=== PATIENT | female | born 1970 | race Caucasian/White ===

== ENCOUNTER 2019-12-06 14:52 | Outpatient (REF) | payer OTHER, SELFPAY ==
--- NOTE | 2019-12-06 | MM_ITS ---
EXAMINATION: MM SCREENING DIGITAL BREAST TOMOSYNTHESIS, BILATERAL CLINICAL INFORMATION: Screening. Asymptomatic. The lifetime risk of breast cancer based on the Tyrer-Cuzick Model is 6%. COMPARISON: Mammography: 12/14/2018, 11/30/2018, 07/01/2016, 05/08/2015, 02/28/2014 TECHNIQUE: Digital breast tomosynthesis is performed in both the craniocaudal and mediolateral oblique views along with computer-aided detection (CAD). Synthesized 2D images are generated from the tomosynthesis. FINDINGS: There are scattered areas of fibroglandular density (ACR BI-RADS breast composition Category b). Fibrocystic changes have regressed since prior studies. There is no significant mass, architectural abnormality, or abnormal calcifications. The axilla and skin contours are unremarkable. There are no significant changes. IMPRESSION: No significant significant changes from prior studies. ASSESSMENT: BI-RADS 2: Benign RECOMMENDATION: Routine annual mammography screening. This patient's information was entered into a reminder system with a target due date for their next mammogram.
== END 2019-12-06 14:53 | disposition home or self-care (01) ==
LOC: HO.MAMMO 14:52
PROVIDERS: PCP Internal Medicine; Visit Provider Internal Medicine
DX: Z12.31 Encounter for screening mammogram for malignant neoplasm of breast (principal)
CPT/HCPCS: 77063; 77067; 78014

== ENCOUNTER → 2019-12-18 10:44 | Outpatient (BNVA) | payer OTHER, SELFPAY | PROVIDERS: PCP Internal Medicine; Visit Provider Physician Assistant | DX: M65.331 Trigger finger, right middle finger (principal) | CPT/HCPCS: 20550; J1020 ==

== ENCOUNTER 2020-11-19 07:59 | Outpatient (REF) | payer OTHER, SELFPAY ==
[2020-11-19 10:13] LABS: MANUAL DIFF FLAG NO
[2020-11-19 10:17] LABS: Basophils Percent Auto 0.6 % (0-2); Eosinophils Absolute Auto 0.1 X10*3/uL (0.0-0.4); Eosinophils Percent Auto 2.2 % (0-4); Hematocrit 37.5 % (37-47); Hemoglobin 12.4 g/dl (12.0-16.0); Imm Gran Abs Auto 0.02 X10*3/uL (0.00-0.03); Imm Gran Pct Auto 0.4 % (0.0-0.4); Lymphocytes Absolute Auto 2.1 X10*3/uL (1.2-4.9); Lymphocytes Percent Auto 41.2 % (20-40); Mean Corpuscular HGB Conc 33.1 g/dl (31.0-35.0); Mean Corpuscular Hemoglobin 28.6 pg (27.0-33.0); Mean Corpuscular Volume 86.6 fL (80-98); Mean Platelet Volume 9.5 fL (9.4-12.3); Monocytes Absolute Auto 0.4 X10*3/uL (0.1-1.2); Monocytes Percent Auto 7.1 % (2-11); Neutrophils Absolute Auto 2.5 X10*3/uL (2.0-8.3); Neutrophils Percent Auto 48.5 % (45-73); Platelet Count 387 X10*3/uL (160-400); Red Blood Count 4.33 X10*6/uL (4.20-5.50); Red Cell Distribution Width 13.3 % (11.0-16.0); White Blood Count 5.1 X10*3/uL (4.8-10.8)
[2020-11-19 10:43] LABS: Alanine Aminotransferase 16 U/L (0-31); Albumin Level 4.1 g/dL (3.5-5.0); Alkaline Phosphatase 45 U/L (39-117); Anion Gap 10 (12-20); Aspartate Amino Transferase 16 U/L (5-31); Bilirubin Total 0.5 mg/dL (0.0-1.0); Blood Urea Nitrogen 12 mg/dL (9-16); Calcium 9.6 mg/dL (8.4-10.2); Carbon Dioxide 25 mmol/L (22-29); Chloride 108 mmol/L (96-108); Cholesterol 186 mg/dL; Estimated Glomerular Filt Rate > 60; Glucose Fasting 94 mg/dL (60-99); HDL Cholesterol 52 mg/dL; LDL Cholesterol Calculated 120 mg/dl; Potassium 4.4 mmol/L (3.3-5.1); Sodium 139 mmol/L (135-145); Total Protein 6.5 g/dL (6.5-8.0); Triglycerides 74 mg/dL
[2020-11-24 15:36] LABS: Vitamin D 25-OH, D2 7 ng/mL; Vitamin D 25-OH, D3 37 ng/mL; Vitamin D 25-OH, Total 44 ng/mL (30-100)
== END 2020-11-19 08:00 | disposition home or self-care (01) ==
LOC: HO.10HDL 07:59
PROVIDERS: Visit Provider Internal Medicine
DX: E55.9 Vitamin D deficiency, unspecified (principal); E78.5 Hyperlipidemia, unspecified; D64.9 Anemia, unspecified; M65.30 Trigger finger, unspecified finger
CPT/HCPCS: 36415; 80053; 80061; 82306; 85025

== ENCOUNTER → 2021-05-19 14:25 | Outpatient (BNVA) | payer OTHER, SELFPAY | PROVIDERS: PCP Internal Medicine; Visit Provider Physician Assistant | DX: Z12.11 Encounter for screening for malignant neoplasm of colon (principal); Z83.71 Family history of colonic polyps ==

== ENCOUNTER 2021-07-28 07:21 | Day surgery (SDC) | payer OTHER, SELFPAY ==
[2021-07-22 15:47] VITALS: BMI 23.1
--- NOTE | 2021-07-27 09:59 | P.CONAN_ITS ---
Documented by User: Dilma Reynoso NP 07/27/21 10:00 HPI - Anesthesia Eval Consult details Narrative: 51yo F for Colonoscopy PMFSH Active Problems Active Problems: All Active Problems (Updated 05/19/21 @ 15:01 by Madalyn Valencia PA-C) Family history of colonic polyps (Acute) Encounter for screening colonoscopy (Acute) Screening for cervical cancer (Acute) Trigger finger, right (Acute) Past Medical History Medical History Screening for cervical cancer Family History Family History Father CVD (cardiovascular disease) Substance use disorder Mother Cancer Surgical History Surgical History History of left breast biopsy History of mastopexy Social History Social History Household Members Other:: single- 2 kids Housing: House Alcohol intake: current Alcohol intake frequency: holidays/special occasions only Patient Tobacco Use Status: Former Tobacco user Tobacco use type: Cigarette e-Cigarette/Vaping Use: Never Used Second Hand Smoke Exposure: No Use of substances other than those prescribed or required for medical reasons: No Are you DNR?: No Advance Directives: No Advance Directives Information Provided: Yes Recently lost weight without trying: No service: No 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 occupational status: 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 Current occupational exposures/hazards: No Meds Allergies Allergy/AdvReac Type Severity Reaction Status Date / Time No Known Allergies Allergy Verified 05/19/21 14:27 Home Medications Medication Instructions Recorded Confirmed Last Taken Type magnesium 250 mg tablet 250 mg PO DAILY 11/25/20 07/28/21 Unknown History Exam Exam Date and Time: July 27, 2021 0959 Height,Weight and Vital Signs: Height 5 ft 4 in Weight 61.235 kg Assessment and Plan Assessment Anesthesia Assessment: Chart Reviewed Documented by User: Sara Meng MD 07/28/21 08:27 [facility] Past Medical History Medical History Screening for cervical cancer Family History Family History Father CVD (cardiovascular disease) Substance use disorder Mother Cancer Family history of problems with anesthesia: No Surgical History Surgical History History of left breast biopsy History of mastopexy History of Problems with Anesthesia: No Social History Social History Household Members Other:: single- 2 kids Housing: House Alcohol intake: current Alcohol intake frequency: holidays/special occasions only Patient Tobacco Use Status: Former Tobacco user Tobacco use type: Cigarette e-Cigarette/Vaping Use: Never Used Second Hand Smoke Exposure: No Use of substances other than those prescribed or required for medical reasons: No Are you DNR?: No Advance Directives: No Advance Directives Information Provided: Yes Recently lost weight without trying: No service: No 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 occupational status: 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 Current occupational exposures/hazards: No Meds Allergies Allergy/AdvReac Type Severity Reaction Status Date / Time No Known Allergies Allergy Verified 05/19/21 14:27 Home Medications Medication Instructions Recorded Confirmed Last Taken Type magnesium 250 mg tablet 250 mg PO DAILY 11/25/20 07/28/21 Unknown History Exam Height,Weight and Vital Signs: Height 5 ft 4 in Weight 61.235 kg Vital Signs Temp Pulse Resp BP Pulse Ox 07/28/21 07:48 98.2 F 78 18 146/81 H 100 Airway Mallampati Class: I TM Dist: >3cm Neck ROM: Full Loose/Missing/Broken Teeth: No Heart: RRR Lungs: CTAB Assessment and Plan Assessment Anesthesia Assessment: Anesthesia Plan Discussed Final Anesthetic Review Family History of Problems with Anesthesia: No History of Problems with Anesthesia: No NPO: Yes ASA Class: I Final Preanesthetic Review: No Changes in Pt Med Stat, Meds/Allgs Chart Reviewed, Consent Obtained/Reviewed and Anes Risks/Benef Reviewed Patient Risk: Low Procedure Risk: Low Assessment/Block/Sedation in SS: Assess/Block/Sedation-SS Anesthetic Plan Anesthetic Plan: MAC: Disposition: Standard PACU
[2021-07-28 07:48] VITALS: BP 146/81; PULSE 78; RESP 18; TEMP 36.8; O2SAT 100
[2021-07-28] MEDS: Lactated Ringers 1,000 ML 100 ML IVCONT (08:07)
--- NOTE | 2021-07-28 08:17 | MHC.SHP ---
Pre-Procedural Eval Section A Date of Service: 07/28/21 Section B Chief Complaint: screening Details of Present Illness: Fh of colon polyps Relevant Family History (Specify if Yes): Yes Relevant Social History: None Present Medications: see Short Stay Collaborative assessment Medical History: No relevant PMH History of Previous Operations: No relevant previous surgery Allergies: Allergies Allergy/AdvReac Type Severity Reaction Status Date / Time No Known Allergies Allergy Verified 05/19/21 14:27 Review of Systems Sugical H&P ROS: Negative: Constitution, Cardiovascular, Respiratory, Neurological, Psychiatric, Hem-Onc, Allergic/Immunologic, Gastrointestinal, Genitourinary, Musculoskeletal, Integumentary, Endocrine and Eyes/Ears/Nose/Throat Exam Surgical H&P Exam: Normal: HEENT, Normal: Heart, Normal: Lungs, Normal: Extremities, Normal: Abdomen, Normal: Skin and Normal: Neurological Plan Diagnosis/Plan: Unchanged I have reviewed the history and physical and performed a pertinent physical examination on my patient. No changes have occurred unless specified.
--- NOTE | 2021-07-28 08:52 | P.BOP_ITS ---
Brief Operative Note Date of Service: 07/28/21 Pre-op diagnosis: Fh of colon polyps Post-op diagnosis: same Procedure: see op note Surgeon: Smita Dickerson MD Anesthesia: MAC Was an Elect Equip Maint Eng used for this Procedure?: No Estimated blood loss (mL): 0 Condition: stable Disposition: PACU
--- NOTE | 2021-07-28 08:53 | P.OP_ITS ---
Operative Note Operative Note Date of Service: 07/28/21 Narrative: Operative Information Procedure Description: Colonoscopy Indication: Fh of colon polyps--screening colonoscopy Anesthesia: MAC COLONOSCOPY Instrument: Olympus variable stiffness pediatric scope 190L Colonoscopy Monitoring: Vital signs and clinical assessment, continuous EKG monitoring, Pulse oximetry, Carbon Dioxide monitoring and blood pressure monitoring were done throughout the procedure. Colon withdrawal time was 8 minutes. Procedure: The patient was placed in the left lateral decubitis position and pre-procedure medications were administered. After a digital rectal examination of the ano-rectum, the video colonoscope was inserted into the rectum and advanced through the colon to the cecum/TI. The colonoscope was slowly withdrawn in a retrograde panoramic fashion and the colon mucosa was carefully examined including a retroflexed view of the rectum. Findings and interventions are described below. Procedure Difficulty: easy Findings: melanosis coli noted Terminal Ileum-normal Cecum:normal Ascending Colon: normal Transverse Colon -normal Descending Colon:normal Sigmoid Colon: moderate severe diverticulosis w/ medium sized tics Rectum: Retroflexion with medium sized internal hemorrhoids, grade I Anorectum - normal Colon preparation: [place] Bowel Preparation Scale Right colon; 2 Transverse colon: 3 Left colon; 3 (0 = Unprepared colon segment with mucosa not seen due to solid stool that cannot be cleared. 1 = Portion of mucosa of the colon segment seen, but other areas of the colon segment not well seen due to staining, residual stool and/or opaque liquid. 2 = Minor amount of residual staining, small fragments of stool and/or opaque liquid, but mucosa of colon segment seen well. 3 = Entire mucosa of colon segment seen well with no residual staining, small fragments of stool or opaque liquid) Impression and Post Procedure Diagnosis: melanosis coli internal hemorrhoids diverticular disease Plan: High fiber diet leaflet Avoid straining at stool, epsom salts and sitz bath, anusol supps or cream Repeat Colonoscopy in 5 years due to Fh of polyps in mutliple family members or earlier if clinically indicated confirm if taking anthraquinone laxatives like senna or herbal teas Above findings were reviewed with the patient and relevant handouts were provided if indicated.
[2021-07-28 08:58] VITALS: BP 103/55; PULSE 81; RESP 16; TEMP 36.6; O2SAT 98
[2021-07-28 09:13] VITALS: BP 124/73; PULSE 63; RESP 16; TEMP 36.6; O2SAT 99
[2021-07-28] MEDS: Sodium Phosphate,Mono-Dibasic 133 ML ENEMA PR (13:20)
--- NOTE | 2021-07-28 13:20 | PC.NURSE ---
late entry. fleets enema given 0750
== END 2021-07-28 09:30 ==
LOC: HO.SSS 07:22
PROVIDERS: PCP Internal Medicine; Visit Provider Internal Medicine Gastroenterology
PROC: 0DJD8ZZ Inspection of Lower Intestinal Tract, Via Natural or Artificial Opening Endoscopic (ICD-10-PCS; CPT 45378; principal; 2021-07-28 08:30)
DX: Z12.11 Encounter for screening for malignant neoplasm of colon (principal); Z83.71 Family history of colonic polyps; K63.89 Other specified diseases of intestine; K57.30 Diverticulosis of large intestine without perforation or abscess without bleeding; K64.0 First degree hemorrhoids; Z79.899 Other long term (current) drug therapy; Z87.891 Personal history of nicotine dependence
CPT/HCPCS: 45378

== ENCOUNTER 2021-08-25 12:55 | Outpatient (REF) | payer OTHER, SELFPAY ==
--- NOTE | ~2021-08-25 | MM_ITS ---
EXAMINATION: MM SCREENING DIGITAL BREAST TOMOSYNTHESIS, BILATERAL CLINICAL INFORMATION: Screening. Asymptomatic. The lifetime risk of breast cancer based on the Tyrer-Cuzick Model is 7%. COMPARISON: Mammography: 12/06/2019, 12/14/2018, 11/30/2018, 07/01/2016; targeted right breast ultrasound 07/08/2016 TECHNIQUE: Digital breast tomosynthesis is performed in both the craniocaudal and mediolateral oblique views along with computer-aided detection (CAD). Synthesized 2D images are generated from the tomosynthesis. FINDINGS: There are scattered areas of fibroglandular density (ACR BI-RADS breast composition Category b). There are waxing and waning smooth partially obscured fibrocystic changes right breast upper outer quadrant. There is no significant mass or architectural abnormality. No abnormal calcifications. The axilla and skin contours are unremarkable. There are no significant changes. MM/MM tomosynthesis screening BI IMPRESSION: No mammographic evidence of malignancy. ASSESSMENT: BI-RADS 2: Benign RECOMMENDATION: Routine annual mammography screening. This patient's information was entered into a reminder system with a target due date for their next mammogram.
== END 2021-08-25 12:56 | disposition home or self-care (01) ==
LOC: HO.MAMMO 12:55
PROVIDERS: PCP Internal Medicine; Visit Provider Internal Medicine
DX: Z12.31 Encounter for screening mammogram for malignant neoplasm of breast (principal)
CPT/HCPCS: 77063; 77067

== ENCOUNTER 2022-08-19 07:38 | Outpatient (REF) | payer OTHER, SELFPAY ==
[2022-08-19 10:19] LABS: MANUAL DIFF FLAG NO
[2022-08-19 10:31] LABS: Basophils Percent Auto 0.7 % (0-2); Eosinophils Absolute Auto 0.1 X10*3/uL (0.0-0.4); Eosinophils Percent Auto 1.8 % (0-4); Hemoglobin 13.4 g/dl (12.0-16.0); Imm Gran Abs Auto 0.02 X10*3/uL (0.00-0.03); Imm Gran Pct Auto 0.5 % (0.0-0.4); Lymphocytes Absolute Auto 1.7 X10*3/uL (1.2-4.9); Lymphocytes Percent Auto 38.3 % (20-40); Mean Corpuscular HGB Conc 33.5 g/dl (31.0-35.0); Mean Corpuscular Hemoglobin 29.2 pg (27.0-33.0); Mean Corpuscular Volume 87.1 fL (80.0-98.0); Mean Platelet Volume 10.5 fL (9.4-12.3); Monocytes Absolute Auto 0.3 X10*3/uL (0.1-1.2); Monocytes Percent Auto 7.5 % (2-11); Neutrophils Absolute Auto 2.3 x10*3/uL (2.0-8.3); Neutrophils Percent Auto 51.2 % (45-73); Platelet Count 342 X10*3/uL (160-400); Red Blood Count 4.59 X10*6/uL (4.20-5.50); Red Cell Distribution Width 13.2 % (11.0-16.0); White Blood Count 4.4 X10*3/uL (4.8-10.8)
[2022-08-19 11:11] LABS: Alanine Aminotransferase 11 U/L (0-31); Albumin Level 4.3 g/dL (3.5-5.0); Alkaline Phosphatase 50 U/L (39-117); Anion Gap 13 (12-20); Aspartate Amino Transferase 16 U/L (5-31); Bilirubin Total 0.6 mg/dL (0.0-1.0); Blood Urea Nitrogen 13 mg/dL (9-16); Carbon Dioxide 23 mmol/L (22-29); Chloride 105 mmol/L (96-108); Cholesterol 201 mg/dL; Estimated Glomerular Filt Rate > 60; Glucose Fasting 95 mg/dL (60-99); HDL Cholesterol 52 mg/dL; LDL Cholesterol Calculated 134 mg/dl; Potassium 4.3 mmol/L (3.3-5.1); Sodium 137 mmol/L (135-145); Total Protein 7.5 g/dL (6.5-8.0); Triglycerides 77 mg/dL
[2022-08-19 11:29] LABS: TSH reflex Free T4 2.51 uIU/mL (0.32-4.0); Vitamin D 25-OH Total 50.1 ng/mL (>30)
[2022-08-19 11:34] LABS: Folate 11.6 ng/mL (> or = 4.0); Vitamin B12 386 pg/mL (200-900)
== END 2022-08-19 07:39 | disposition home or self-care (01) ==
LOC: HO.10HDL 07:38
PROVIDERS: Visit Provider Nurse Practitioner Family
DX: Z00.00 Encounter for general adult medical examination without abnormal findings (principal); Z13.29 Encounter for screening for other suspected endocrine disorder; Z13.220 Encounter for screening for lipoid disorders; K57.90 Diverticulosis of intestine, part unspecified, without perforation or abscess without bleeding
CPT/HCPCS: 36415; 80053; 80061; 82306; 82607; 82746; 84443; 85025

== ENCOUNTER 2022-10-14 14:46 | Outpatient (REF) | payer OTHER, SELFPAY | END 2022-10-14 14:47 | disposition home or self-care (01) | LOC: HO.MAMMO 14:46 | PROVIDERS: PCP Internal Medicine; Visit Provider Internal Medicine | DX: Z12.31 Encounter for screening mammogram for malignant neoplasm of breast (principal) | CPT/HCPCS: 77063; 77067 ==

== ENCOUNTER → 2022-10-14 15:00 | Outpatient (BNV) | payer OTHER, SELFPAY | PROVIDERS: PCP Internal Medicine; Visit Provider Radiology Diagnostic Radiology | DX: Z12.31 Encounter for screening mammogram for malignant neoplasm of breast (principal) | CPT/HCPCS: 77063; 77067 ==

== ENCOUNTER 2022-12-16 13:18 | Outpatient (REF) | payer OTHER, SELFPAY ==
[2022-12-16 18:28] LABS: CT PCR NOT DETECTED (Not Detect.); NG PCR NOT DETECTED (Not Detect.)
[2022-12-20 21:18] LABS: HPV mRNA E6/E7 rflx Not Detected (Not Detected)
== END 2022-12-16 13:19 | disposition home or self-care (01) ==
LOC: HO.LNP 13:18
PROVIDERS: PCP Internal Medicine; Visit Provider Advanced Practice Midwife
DX: Z01.419 Encounter for gynecological examination (general) (routine) without abnormal findings (principal); Z11.51 Encounter for screening for human papillomavirus (HPV); Z20.2 Contact with and (suspected) exposure to infections with a predominantly sexual mode of transmission
CPT/HCPCS: 0353U; 87624; 88142

== ENCOUNTER 2022-12-16 13:18 | Outpatient (AMB) | payer OTHER, SELFPAY ==
--- NOTE | 2022-12-16 13:31 | MHC.OFFVIS ---
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 Patient admits she tries to eat a healthy diet including Calcium and Vitamin D. She stays active with exercise. Currently sexually active; uses withdrawal method. Regular monthly menses; 2/4 days are heavy. Denies vaginal itching and irritation. STD screening offered; she accepts. Denies family hx of breast cancer. Last pap smear 05/18/15. Last mammogram 10/14/22. UTD on colonoscopy. 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 occupational status: 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 Current occupational exposures/hazards: No Cognitive needs: No Hearing needs: No Vision needs: No Female Reproductive History Menstrual Date of last menstrual period: 12/11/22 control method: none Total pregnancies: 3 Full term: 2 Number of Living Children: 2 Ab induced: 1 Date of last pap smear: 05/18/15 History of abnormal pap smear: No Date of Mammogram: 08/11/23 Physical Exam Vital Signs: Last Vital Signs BP 118/72 12/16/22 13:33 BMI result Body Mass Index 24.4 Const General: cooperative, healthy appearing, no acute distress, well developed and alert Orientation/consciousness: patient oriented x3 HEENT Head: Yes normal to inspection Eyes General: appearance normal, both eyes and all related structures Neck Neck: Yes normal visual inspection Thyroid: Thyroid normal Chest Other: bilateral breast reconstruction scarring Chest palpation & inspection: normal inspection of the chest Breast/axilla inspection: normal inspection of the breasts (no puckering, dimpling, peau de orange, retraction, discharge, masses) Breast/axilla palpation: normal palpation of the breasts Resp Effort & Inspection: normal respiratory effort GI Inspection: Yes normal to inspection Palpation (GI): Soft to palpation (to palpation) Rectal Exam - Female: deferred General: Yes bladder normal to inspection External Female Exam: normal external appearance and normal appearance of the urethra Speculum Exam - Vagina: normal appearance of the vagina, normal palpation and normal vaginal discharge Speculum Exam - Cervix: normal appearance of the cervix, normal palpation and Other cervical findings present (small amount of blood present) Bimanual exam- vagina & uterus: normal palpation and normal palpation Bimanual Exam- Adnexa, other: normal adnexae and no masses Skin General skin exam: no rashes or lesions noted Neuro General: patient oriented x3 Cognition (Neuro): normal cognition Extrem General: Yes normal to inspection Psych Attitude: cooperative Thought process: Normal thought process present Assessment & Plan Assessment & Plan (1) Encounter for well woman exam: Code(s): Z01.419 - Encounter for gynecological examination (general) (routine) without abnormal findings Plan: Discussed: Current recommendations for pap smears per ASCCP guidelines. Breast awareness and periodic self breast exams. Maintaining a healthy lifestyle including a well balanced diet and routine exercise. Counseled re: perimenopause vs menopause. Monitor periods, report any unscheduled bleeding, bleeding episodes less than 21 days apart or heavy prolonged menstrual bleeding. Discussed BRCA testing; contact insurance for coverage. Encouraged patient to sign up for patient portal. All of her questions and concerns were addressed to the best of my ability. RTO in one year for AG. (2) Potential exposure to STD: Code(s): Z20.2 - Contact with and (suspected) exposure to infections with a predominantly sexual mode of transmission Plan: BV testing and GC/CT panel today. Await results and treat accordingly. Encouraged to use condoms, spermicide or combination. Orders: Orders Pap Smear Today Z01.419 - Encounter for gynecological examination (general) (routine) without abnormal findings CT NG by PCR Today Z01.419 - Encounter for gynecological examination (general) (routine) without abnormal findings Coding Level of Care Code Est Pt Prev Care 40-64y(75199) Diagnoses Encounter for well woman exam Z01.419 Potential exposure to STD Z20.2
[2022-12-16 13:33] VITALS: BP 118/72; BMI 24.4
== END 2022-12-16 14:17 | disposition home or self-care (01) ==
PROVIDERS: PCP Internal Medicine; Visit Provider Advanced Practice Midwife
DX: Z01.419 Encounter for gynecological examination (general) (routine) without abnormal findings (principal); Z20.2 Contact with and (suspected) exposure to infections with a predominantly sexual mode of transmission
CPT/HCPCS: 99396

== ENCOUNTER 2023-01-13 10:27 | Outpatient (AMB) | payer OTHER, SELFPAY ==
[2023-01-13 10:31] VITALS: BP 134/80; BMI 24.5
--- NOTE | 2023-01-13 10:31 | A.OFFVIS_ITS ---
Intake Vital Signs 01/13/23 10:31 Height 5 ft 4 in Weight 143 lb BMI 24.5 BP 134/80 Intake Visit Reasons: EMB Intake Note: The patient agreed to use of a medical technician assistant during this encounter. Scribed for WILVER Abbott by Cally Angeles medical technician assistant, on 01/13/2023 at 10:45 am EST Regulatory Compliance Engineer Required: No Information Interpreted: non-clinical & clinical Disability Hearing Officer: Disability Hearing Officer Present (Aidyn) Allergies No Known Allergies Allergy (Verified 01/13/23 10:35) Is last menstrual period known: Yes Last menstrual period: 01/07/23 Post menopausal: No HPI HPI Comments History of Present Illness Details The patient is here today for an endometrial biopsy for endometrial cells on pap smear to rule out any pathology including atypical, hyperplasia or cancer cells of the uterus. She was consented for the procedure, and the consent forms were signed. She is agreeable to have the procedure today. All questions were answered. Hx of heavy bleeding and had US approximately 7 years ago. Her HMB started approximately 15 yaears ago. Tried BC years ago and had side effects, nausea/vomiting. Reports her bleeding has improved over the past couple years. Reports monthly menses, HMB 2/4 days. 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 occupational status: 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 Current occupational exposures/hazards: No Cognitive needs: No Hearing needs: No Vision needs: No Female Reproductive History Menstrual Age of Menarche: 13 Duration of menses: 6-7 days Date of last menstrual period: 01/07/23 control method: none Date of last pap smear: 12/16/22 (Endometrial cells) Review of Systems Const All systems reviewed & are unremarkable except as noted in HPI and below Physical Exam Vital Signs: Last Vital Signs BP 134/80 01/13/23 10:31 BMI result Body Mass Index 24.5 Const General: cooperative, no acute distress, well developed and alert External Female Exam: normal external appearance Speculum Exam - Vagina: normal appearance of the vagina and vaginal bleeding (brown blood in vault) Speculum Exam - Cervix: normal appearance of the cervix Bimanual exam- vagina & uterus: normal bimanual exam, uterine size normal, uterine shape normal and non-tender Bimanual Exam- Adnexa, other: normal adnexae and no masses OB/external & speculum: vaginal bleeding (brown blood in vault) Office Procedures Endometrial Biopsy Details: She was counseled regarding anticipatory guidance for the procedure including the risks for pain, infection, bleeding, perforation, potential injury to the tissues may include the cervix, uterus, tubes, bladder and bowels. These injuries may include further treatment and evaluation including surgery, blood transfusions, antibiotics, hospitalizations and anesthesia. Permanent injury and scarring can occur. The patient was placed in the dorsal lithotomy position and a sterile speculum inserted. Using aseptic technique for the procedure. The cervix was cleansed with Betadine x 3 swabs. A single toothed tenaculum was placed on the cervix for stabilization and the uterus was sounded to 7.5 cm with a 4mm pipelle for 3 passes. Minimal bleeding was observed. The patient tolerated the procedure well and was in good condition when leaving the department. The tissue sample was placed in formalin in a patient labeled container by staff assisting and sent to the pathology department for processing and interpretation. The patient tolerated the procedure well. Warnings reviewed with patient. Instructions given to call if temp >100.4, flu like sx, SOB, fatigue, lightheadedness/dizziness, abd pain (worse than cramping), bloating or abd distention, foul odor or abnormal discharge or heavy vaginal bleeding. [id number] Biopsy Results AMB Test Urine AMB Test Urine Negative Last Edit by MARBELLA Guerrero on 01/13/23 10:42 Results Reviewed Results Reviewed: Laboratory Last Values [facility]st Clinic Negative 01/13/23 10:42 Pap smear General Category: Negative for intraepithelial lesion/malignancy. Adequacy: Endocervical component present. Interpretation: Reactive cellular changes. Endometrial cells present in a patient over age 45 Assessment & Plan Assessment & Plan (1) Unexplained endometrial cells on cervical Pap smear: Code(s): R87.618 - Other abnormal cytological findings on specimens from cervix uteri Plan: EMBx done today, see procedure note. Instructed patient nothing in the vagina including: tampons, douching or sex for 3 days. She may take an over the counter mild analgesic such as Tylenol or Advil (if no allergies) per the skid wrapper?s recommendation on dosing, frequency, and follow the directions completely. RTO for test results. (2) Heavy menstrual bleeding: Code(s): N92.0 - Excessive and frequent menstruation with regular cycle Qualifiers: Menorrhagia type: with regular cycle Qualified Code(s): N92.0 - Excess russell and frequent menstruation with regular cycle Plan: Counseled on HMB. Offered BC for cycle control including Mirena IUD. Handout given today. She will contact office with decision. Expectant management: monitor menses and contact office with any concerns. (3) History of uterine fibroid: Code(s): Z86.018 - Personal history of other benign neoplasm Plan: Reviewed old US. Repeat US for stability. US ordered today. RTO for test results. Orders: Orders AMB HCG Urine Test Today Z32.02 - Encounter for test, result negative US pelvic and transvaginal Today D21.9 - Benign neoplasm of connective and other soft tissue, unspecified, N93.9 - Abnormal uterine and vaginal bleeding, unspecified Coding Level of Care Code Procedure Only Diagnoses Unexplained endometrial cells on cervical Pap smear R87.618 Menorrhagia with regular cycle N92.0 Menorrhagia type: with regular cycle History of uterine fibroid Z86.018 CPT Codes Endometrial Biopsy - CPT: 54305-[id number] Biopsy ([id number])
== END 2023-01-13 11:08 | disposition home or self-care (01) ==
LOC: HO.HWS 10:27
PROVIDERS: PCP Internal Medicine; Visit Provider Advanced Practice Midwife
DX: R87.618 Other abnormal cytological findings on specimens from cervix uteri (principal); N92.0 Excessive and frequent menstruation with regular cycle; Z86.018 Personal history of other benign neoplasm; Z32.02 Encounter for pregnancy test, result negative
CPT/HCPCS: 58100

== ENCOUNTER 2023-01-13 10:27 | Outpatient (REF) | payer OTHER, SELFPAY | END 2023-01-13 10:28 | disposition home or self-care (01) | LOC: HO.LNP 10:27 | PROVIDERS: PCP Internal Medicine; Visit Provider Advanced Practice Midwife | DX: R87.618 Other abnormal cytological findings on specimens from cervix uteri (principal); N92.0 Excessive and frequent menstruation with regular cycle; Z86.018 Personal history of other benign neoplasm | CPT/HCPCS: 58100; 81025; 88305 ==

== ENCOUNTER 2023-01-17 15:32 | Outpatient (AMB) | payer OTHER, SELFPAY ==
--- NOTE | 2023-01-17 15:57 | MHC.OFFVIS ---
Intake Intake Visit Reasons: Biopsy results ok per Mariela Intake Note: Scribed for Mariela Gallo CNM by Simon Coronado, medical physics researcher, on [ ] at [ ], EST Accompanied by: Spouse Allergies No Known Allergies Allergy (Verified 01/17/23 15:57) HPI HPI Comments History of Present Illness Details Patient presents with her to discuss biposy results for her HMB. She has a hx of heavy bleeding and a previous US done in ~2015. Her HMB started in ~2007. Tried BC years ago and had side effects, nausea/vomiting. Reports her bleeding has improved over the past couple years. Reports monthly menses with HMB for 2-4 days. She reports her underarm lymph nodes swell immediately prior to her monthly menses. [facility] Medical History Screening for cervical cancer Surgical History Hx of colonoscopy History of mastopexy History of left breast biopsy Family History Father CVD (cardiovascular disease) Substance use disorder Mother Ovarian cancer Brother Colon cancer Lung cancer Social History Household Members Other:: single- 2 kids Housing: House Alcohol intake: current Alcohol intake frequency: holidays/special occasions only Patient Tobacco Use Status: Former Tobacco user Tobacco use type: Cigarette e-Cigarette/Vaping Use: Never Used Second Hand Smoke Exposure: No service: No Current occupational status: 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 Current occupational exposures/hazards: No Cognitive needs: No Hearing needs: No Vision needs: No Female Reproductive History Menstrual Age of Menarche: 13 Review of Systems Const All systems reviewed & are unremarkable except as noted in HPI and below Physical Exam Const General: cooperative, healthy appearing and no acute distress Orientation/consciousness: patient oriented x3 Neuro General: patient oriented x3 Results Reviewed Results Reviewed: Diagnosis Endometrium, biopsy: 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 I recommend that she have a hysteroscopy, and discussed this with her. If not she will need to be monitored long-term with frequent biopsies and hormone treatment. She has an US scheduled for 02/03/23 She will follow up on 02/22/23 to discuss the results She will make an appointment to speak with Dr. Dove concerning treatment options. She is considering a possible Hysterectomy. All of her questions and concerns were addressed to the best of my ability Consult with Dr. Dove ordered. (2) Heavy menstrual bleeding: Code(s): N92.0 - Excessive and frequent menstruation with regular cycle Plan: Expectant management: monitor menses and contact office with any concerns. Considering options and will meet with Dr. Dove to discuss possible hysterectomy for hyperplasia. (3) History of uterine fibroid: Code(s): Z86.018 - Personal history of other benign neoplasm Coding Level of Care Code Est Pt Level 3 (66514) Diagnoses EIN (endometrial intraepithelial neoplasia) N85.02 Heavy menstrual bleeding N92.0 History of uterine fibroid Z86.018
== END 2023-01-17 16:17 | disposition home or self-care (01) ==
PROVIDERS: PCP Internal Medicine; Visit Provider Advanced Practice Midwife
DX: N85.02 Endometrial intraepithelial neoplasia [EIN] (principal); N92.0 Excessive and frequent menstruation with regular cycle; Z86.018 Personal history of other benign neoplasm
CPT/HCPCS: 99213

== ENCOUNTER → 2023-01-17 15:32 | Outpatient (BNVA) | payer OTHER, SELFPAY | PROVIDERS: PCP Internal Medicine; Visit Provider Advanced Practice Midwife ==

== ENCOUNTER 2023-02-03 14:29 | Outpatient (REF) | payer OTHER, SELFPAY ==
--- NOTE | ~2023-02-03 | US_ITS ---
EXAMINATION: US PELVIS CLINICAL INFORMATION: Uterine fibroid. LMP 01/14/2023. COMPARISON: 05/22/2015 TECHNIQUE: Ultrasound of the pelvis is performed using both transabdominal and transvaginal transducers along with Doppler. Transvaginal imaging is performed due to inadequate visualization transabdominally. FINDINGS: Uterus: The uterus is anteverted. Uterine echotexture is heterogeneous. The uterus measures 9.1 x 3.5 x 5.0 cm. The double wall endometrial thickness is 10 mm. Endometrial calcification measures 2 mm. Cervical nabothian cysts. Right posterior fibroid with possible submucosal component measures 2.8 x 2.9 x 3.2 cm. Adnexa: Both ovaries are visualized. There is no pelvic ascites or fluid collection. Right ovary measures 5.0 x 2.3 x 2.7 cm. Dominant follicle measures 2.4 x 2.0 x 1.9 cm Left ovary measures 2.4 x 2.2 x 2.2 cm. US/US pelvic and transvaginal IMPRESSION: Right posterior uterine fibroid with possible submucosal component measuring 2.8 x 2.9 x 3.2 cm.
== END 2023-02-03 14:30 | disposition home or self-care (01) ==
LOC: HO.US 14:29
PROVIDERS: PCP Internal Medicine; Visit Provider Advanced Practice Midwife
DX: D21.9 Benign neoplasm of connective and other soft tissue, unspecified (principal); N93.9 Abnormal uterine and vaginal bleeding, unspecified
CPT/HCPCS: 76830; 76856

== ENCOUNTER 2023-02-22 15:10 | Outpatient (AMB) | payer OTHER, SELFPAY ==
--- NOTE | 2023-02-22 15:14 | A.OFFVIS_ITS ---
Intake Vital Signs 02/22/23 15:15 Height 5 ft 4 in Weight 143 lb BMI 24.5 BP 160/88 H Intake Visit Reasons: Ultrasound Follow up Public Health Teacher: Public Health Teacher Present Allergies No Known Allergies Allergy (Verified 02/22/23 15:15) Is last menstrual period known: Yes HPI HPI Comments History of Present Illness Details Patient is here for a ultrasound follow-up. She has a history of heavy menstrual bleeding. And a recent endometrial biopsy resulting in EIN. [facility] Medical History (Updated 01/17/23 @ 16:28 by Simon Coronado) EIN (endometrial intraepithelial neoplasia) Screening for cervical cancer Surgical History Hx of colonoscopy History of mastopexy History of left breast biopsy Family History Father CVD (cardiovascular disease) Substance use disorder Mother Ovarian cancer Brother Colon cancer Lung cancer Social History Household Members Other:: single- 2 kids Housing: House Alcohol intake: current Alcohol intake frequency: holidays/special occasions only Patient Tobacco Use Status: Former Tobacco user Tobacco use type: Cigarette e-Cigarette/Vaping Use: Never Used Second Hand Smoke Exposure: No service: No 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 occupational status: 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 Current occupational exposures/hazards: No Cognitive needs: No Hearing needs: No Vision needs: No Female Reproductive History Menstrual Age of Menarche: 13 Review of Systems Const All systems reviewed & are unremarkable except as noted in HPI and below Endo Reports no additional complaints Physical Exam Vital Signs: Last Vital Signs BP 160/88 H 02/22/23 15:15 BMI result Body Mass Index 24.5 Const General: cooperative, healthy appearing and no acute distress Psych Appearance: well kempt Attitude: cooperative Thought process: Normal thought process present Results Reviewed Results Reviewed: [address] [address] Ultrasound Report Signed Patient: Luda Cardenas MR#: [id number] : 1970 Acct:[id number] Age/Sex: 52 / F ADM Date: 02/03/23 Loc: HO. Attending Dr: Mariela Gallo CNM Ordering Physician: Mariela Gallo CNM Date of Service: 02/03/23 Procedure(s): US pelvic and transvaginal Accession Number(s): [id number] cc: Mariela Gallo CNM; Marlys Hankins MD~ EXAMINATION: US PELVIS CLINICAL INFORMATION: Uterine fibroid. LMP 01/14/2023. COMPARISON: 05/22/2015 TECHNIQUE: Ultrasound of the pelvis is performed using both transabdominal and transvaginal transducers along with Doppler. Transvaginal imaging is performed due to inadequate visualization transabdominally. FINDINGS: Uterus: The uterus is anteverted. Uterine echotexture is heterogeneous. The uterus measures 9.1 x 3.5 x 5.0 cm. The double wall endometrial thickness is 10 mm. Endometrial calcification measures 2 mm. Cervical nabothian cysts. Right posterior fibroid with possible submucosal component measures 2.8 x 2.9 x 3.2 cm. Adnexa: Both ovaries are visualized. There is no pelvic ascites or fluid collection. Right ovary measures 5.0 x 2.3 x 2.7 cm. Dominant follicle measures 2.4 x 2.0 x 1.9 cm Left ovary measures 2.4 x 2.2 x 2.2 cm. US/US pelvic and transvaginal IMPRESSION: Right posterior uterine fibroid with possible submucosal component measuring 2.8 x 2.9 x 3.2 cm. Dictated By: Nae Phoenix MD Signed By: <Electronically signed by Nae Phoenix MD in OV> 02/06/231999 DD/ [id number] TD/TT: Butadiene Convertor Operator: Assessment & Plan Assessment & Plan (1) Encounter to discuss test results: Code(s): Z71.2 - Person consulting for explanation of examination or test findings Plan Discussed: Ultrasound findings: See report noted above, fibroid, history of recent EMB resulting in diagnosis of EIN. She request a robotics hysterectomy. She does not want to have a hysteroscopy. Referral placed to [facility]REDON[facility] for care consult. All of her questions and concerns were addressed to the best of my ability and shared decision making. She is agreeable to the plan of care. Orders: Referrals REFUSE LABORER Referral N85.02 - Endometrial intraepithelial neoplasia [EIN] Coding Level of Care Code Est Pt Level 2 (16786) Diagnoses Encounter to discuss test results Z71.2
[2023-02-22 15:15] VITALS: BP 160/88; BMI 24.5
== END 2023-02-22 16:22 | disposition home or self-care (01) ==
LOC: HO.HWS 15:10
PROVIDERS: PCP Internal Medicine; Visit Provider Advanced Practice Midwife
DX: Z71.2 Person consulting for explanation of examination or test findings (principal)
CPT/HCPCS: 99212

== ENCOUNTER → 2023-02-22 15:10 | Outpatient (BNVA) | payer OTHER, SELFPAY | PROVIDERS: PCP Internal Medicine; Visit Provider Advanced Practice Midwife ==

== ENCOUNTER 2023-10-20 15:23 | Outpatient (REF) | payer OTHER, SELFPAY ==
--- NOTE | ~2023-10-20 | MM_ITS ---
EXAMINATION: MM SCREENING DIGITAL BREAST TOMOSYNTHESIS, BILATERAL CLINICAL INFORMATION: Screening. Asymptomatic. COMPARISON: Mammography: This study is compared with prior exams dating back to 2019. TECHNIQUE: Digital breast tomosynthesis is performed in both the craniocaudal and mediolateral oblique views along with computer-aided detection (CAD). Synthesized 2D images are generated from the tomosynthesis. FINDINGS: The breasts are heterogeneously dense, which may obscure small masses (ACR BI-RADS breast composition Category c). There are no significant masses, abnormal calcifications, or other abnormalities. MM/MM tomosynthesis screening BI IMPRESSION: No mammographic evidence of malignancy. ASSESSMENT: BI-RADS BI-RADS 1 - Negative RECOMMENDATION: Routine annual mammography screening. 1 year F/U This examination should not preclude the clinical evaluation of a suspicious palpable abnormality. This patient's information was entered into a reminder system with a target due date for their next mammogram. Electronically signed by: Estee Castorena MD 11/18/2023 04:03 PM EDT
== END 2023-10-20 15:24 | disposition home or self-care (01) ==
LOC: HO.MAMMO 15:23
PROVIDERS: PCP Internal Medicine; Visit Provider Internal Medicine
DX: Z12.31 Encounter for screening mammogram for malignant neoplasm of breast (principal)
CPT/HCPCS: 77063; 77067

== ENCOUNTER → 2023-10-20 15:30 | Outpatient (BNV) | payer OTHER, SELFPAY | PROVIDERS: PCP Internal Medicine; Visit Provider Radiology Diagnostic Radiology | DX: Z12.31 Encounter for screening mammogram for malignant neoplasm of breast (principal) | CPT/HCPCS: 77063; 77067 ==

== ENCOUNTER 2024-11-30 10:10 | Outpatient (REF) | payer OTHER, SELFPAY ==
--- NOTE | ~2024-11-30 | MM_ITS ---
EXAMINATION: MM SCREENING DIGITAL BREAST TOMOSYNTHESIS, BILATERAL CLINICAL INFORMATION: Screening. Asymptomatic. COMPARISON: Mammography: Comparison is made with available priors TECHNIQUE: Digital breast mammography with tomosynthesis is performed in both the craniocaudal and mediolateral oblique views along with computer-aided detection (CAD). FINDINGS: There are scattered areas of fibroglandular density. Right: Asymmetry superior breast far posterior depth on MLO view. No suspicious calcifications or other abnormal findings. Left: There are no significant masses, abnormal calcifications, or other abnormalities. MM/MM tomosynthesis screening BI IMPRESSION: Additional imaging is recommended ASSESSMENT: BI-RADS Category 0: Incomplete - Need additional Imaging Evaluation RECOMMENDATION: 1. Additional views of the right breast. 2. Targeted ultrasound if warranted after review of the additional views. 3. Radiology department staff will contact the patient for additional imaging. Additional Imaging required This examination should not preclude the clinical evaluation of a suspicious palpable abnormality. This patient's information was entered into a reminder system with a target due date for their next mammogram. Electronically signed by: Tracey Bruce DO 12/03/2024 09:25 AM EDT
== END 2024-11-30 10:11 | disposition home or self-care (01) ==
LOC: HO.MAMMO 10:10
PROVIDERS: PCP Internal Medicine; Visit Provider Internal Medicine
DX: Z12.31 Encounter for screening mammogram for malignant neoplasm of breast (principal)
CPT/HCPCS: 77063; 77067

== ENCOUNTER → 2024-11-30 10:15 | Outpatient (BNV) | payer OTHER, SELFPAY | PROVIDERS: PCP Internal Medicine; Visit Provider Internal Medicine | DX: Z12.31 Encounter for screening mammogram for malignant neoplasm of breast (principal) | CPT/HCPCS: 77063; 77067 ==

== ENCOUNTER 2025-01-10 10:16 | Outpatient (REF) | payer OTHER, SELFPAY ==
--- NOTE | ~2025-01-10 | US_ITS ---
EXAMINATION(S): 1. MM DIAGNOSTIC DIGITAL BREAST TOMOSYNTHESIS, RIGHT 2. Targeted ultrasound of the right breast CLINICAL INFORMATION: Callback from screening for right breast asymmetry located in the upper breast far posterior depth on the MLO view. History of previous reduction mammoplasty. History of previous right cyst removal in , located at 12:00 anterior breast. COMPARISON: Comparison made to multiple prior, most recent November 30, 2024, and most remote May 08, 2015. Prior right breast ultrasound on July 08, 2016 and May 08, 2015 TECHNIQUE: Digital breast tomosynthesis is performed in full-field MLO along with computer-aided detection (CAD). Synthesized 2D images are generated from the tomosynthesis. Spot compression tomosynthesis in MLO were obtained. FINDINGS: BREAST COMPOSITION: There are scattered areas of fibroglandular density. RIGHT BREAST: Previously described asymmetry on the MLO view posterior depth persists on today's images, measuring up to 1.2 cm in size at about 10 cm from the nipple (spot MLO ). On today's images, it appears similar to prior mammogram as far back as July 01, 2016 or May 08, 2015. Targeted ultrasound of the right breast was performed at the location of the mammographic finding. The survey shows a 1.7 x 0.6 x 1.1 cm cyst with septations or 3 adjacent cysts at 9 o'clock position at 8 cm from the nipple. No internal vascularity demonstrated with color Doppler evaluation. Prior ultrasound on July 08, 2016 shows presumed same septated cyst or adjacent cysts measuring 1.8 x 0.9 cm at 9 o'clock position at 8 cm from the nipple (measurements from the cine loops), and 1.3 x 0.5 x 1.4 cm at 9 o'clock position 7 cm from the nipple in May 2015. US/US Breast RT Limited Mamm Only IMPRESSION: RIGHT BREAST: Chronic septated cyst or adjacent cysts at 9 o'clock position at 8 cm from the nipple. Benign, no evidence of malignancy. Normal interval follow-up is recommended in 12 months. ASSESSMENT: BI-RADS: Category 2: Benign RECOMMENDATION: 1 year F/U Results were provided to the patient at time of visit by the technologist. This patient's information was entered into a reminder system with a target due date for their next mammogram. Electronically signed by: Peggy Lopez MD 01/10/2025 11:06 AM [facility]
== END 2025-01-10 10:17 | disposition home or self-care (01) ==
LOC: HO.MAMMO 10:16
PROVIDERS: PCP Internal Medicine; Visit Provider Internal Medicine
DX: N64.89 Other specified disorders of breast (principal)
CPT/HCPCS: 76642; 77061; 77065

== ENCOUNTER → 2025-01-10 10:30 | Outpatient (BNV) | payer OTHER, SELFPAY | PROVIDERS: PCP Internal Medicine; Visit Provider Radiology Body Imaging | DX: R92.8 Other abnormal and inconclusive findings on diagnostic imaging of breast (principal) | CPT/HCPCS: 76642; 77061; 77065 ==